=== PATIENT | male | born 1945 | race Two or more races ===

== ENCOUNTER 2018-11-02 09:16 | Outpatient (CLI) | payer OTHER | END 2018-11-02 10:33 | disposition home or self-care (01) | LOC: NUCLEAR 09:16 | DX: C44.49 Other specified malignant neoplasm of skin of scalp and neck (principal); C77.0 Secondary and unspecified malignant neoplasm of lymph nodes of head, face and neck | CPT/HCPCS: 78816; A9552 ==

== ENCOUNTER 2019-06-04 08:31 | Outpatient (CLI) | payer OTHER | END 2019-06-04 08:50 | disposition home or self-care (01) | LOC: NUCLEAR 08:31 | DX: C44.49 Other specified malignant neoplasm of skin of scalp and neck (principal); Z08 Encounter for follow-up examination after completed treatment for malignant neoplasm | CPT/HCPCS: 78816; A9552 ==

== ENCOUNTER 2021-08-05 08:08 | Outpatient (CLI) | payer OTHER | END 2021-08-05 08:09 | disposition home or self-care (01) | LOC: NUCLEAR 08:08 | DX: C76.8 Malignant neoplasm of other specified ill-defined sites (principal) | CPT/HCPCS: 78815; A9552 ==